=== PATIENT | male | born 1980 | race Caucasian/White ===

== ENCOUNTER 2019-10-10 09:42 | Emergency (ER) | payer BC ==
[~2019-10-10] VITALS: Ht 180.3 cm; Wt 84.1 kg
[2019-10-10 09:48] VITALS: BP 125/72
[2019-10-10] MEDS ORDERED: BENZ-16 PO (10:01)
--- NOTE | 2019-10-10 10:30 | NUR ---
Patient seen and assessed by provider.
== END 2019-10-10 10:39 | disposition home or self-care (01) ==
LOC: EDSEX 09:42 → ER 09:42 → EEVIPCON 09:42 → ER 10:39
DX: J02.9 Acute pharyngitis, unspecified (principal); R05 Cough; Z79.899 Other long term (current) drug therapy
CPT/HCPCS: 36415; 99281; 99283